=== PATIENT | female | born 1960 | race Caucasian/White ===

== ENCOUNTER → 2016-09-26 | Outpatient (CLI) | payer OTHER | LOC: FIMAGING 17:00 | PROVIDERS: ATTEND Specialist | DX: N20.0 Calculus of kidney (principal) ==

== ENCOUNTER 2016-10-22 11:03 | Day surgery (SDC) | payer OTHER ==
[2016-10-22] MEDS ORDERED: LR 1,000 ML IV ONE (11:52)
[2016-10-22] MEDS ORDERED: LIDOCAINE 1% 5 ML SDV ID PRN (11:52)
[2016-10-22] MEDS ORDERED: fentaNYL 100 MCG/2 ML INJ ONE (12:27)
[2016-10-22] MEDS ORDERED: PROPOFOL/EMULSION 500 MG/50 ML BOTTLE IV ONE (12:27)
[2016-10-22] MEDS ORDERED: LIDOCAINE 2% 100 MG/5 ML SYR ONE (12:28)
[2016-10-22] MEDS ORDERED: DEXAMETHASONE 4 MG/ML VIAL ONE (12:28)
[2016-10-22] MEDS ORDERED: MIDAZOLAM 2 MG/2 ML VIAL ONE (12:29)
[2016-10-22] MEDS ORDERED: ROCURONIUM 50 MG/5 ML VIAL ONE (12:30)
--- NOTE | 2016-10-22 14:09 | GPN ---
[f rep st] PROCEDURE NOTE DATE OF PROCEDURE: 10/22/2016 PROCEDURE: Esophagogastroscopy with biopsy, endoscopic ultrasound. INDICATION: The patient is a 56-year-old female who presents for evaluation of abnormal imaging. S he also has complaints of nausea, vomiting, as well as diffuse abdominal pain. Patient wants furthe r evaluation. CONSENT: Risks, benefits, and alternatives of the procedure were discussed in great detail with the patient. Risks of infection, bleeding, perforation, sedation, and pancreatitis were discussed. Al l questions answered. Informed consent obtained. MEDICATIONS: General anesthesia. Please see Anesthesia details. ESTIMATED BLOOD LOSS: Insignificant. ESOPHAGOGASTRODUODENOSCOPY EXAMINATION: The Olympus upper endoscope was introduced into the mouth a nd into the esophagus. Proximal and mid esophagus were normal in appearance. The patient had an ir regular Z-line with a tongue of columnar-appearing epithelium extending at least 2 cm above the teri roesophageal junction. Biopsies were taken. The stomach was entered and closely examined, including retroflexed exam of angularis, cardia, and f undus. The patient noted to have a moderate-sized hiatal hernia. The mucosa in the antrum and body was erythematous in a patchy distribution. Biopsies were taken. The duodenal bulb and second portion were normal in appearance. Biopsies were taken . Endoscopic ultrasound examination revealed linear in the mouth and second portion of the duodenum. The pancreas carefully examined from the uncinate process to the tail, where the spleen w as seen. The patient noted to have hyperechoic foci throughout the pancreas. The patient also note d to have dilated side branches as well as hyperechoic ductal weiner. In the mid pancreas, a [address] one with acoustic shadowing was noted. The liver was seen and was normal. No suspicious periportal, peripancreatic, or perigastric stones appreciated. IMPRESSION: 1. Chronic pancreatitis. 2. Gastritis, status post biopsy. 3. 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 RECOMENDATIONS: 1. Follow up on biopsy results. 2. Proceed with colonoscopy. /[id number]/MODL
--- NOTE | 2016-10-22 14:24 | GPN ---
[f rep st] PROCEDURE NOTE DATE OF PROCEDURE: 10/22/2016 PROCEDURE PERFORMED: Colonoscopy with snare polypectomy, biopsy. INDICATIONS: The patient is a 56-year-old female who presents for evaluation of blood in stool. CONSENT: Risks, benefits, and alternatives of the procedure were discussed in great detail with the patient. Risks of infection, bleeding, perforation, and sedation were discussed. All questions we re answered. Informed consent was obtained. MEDICATIONS: General anesthesia. Please see Anesthesiology record for details. ESTIMATED BLOOD LOSS: Insignificant. COLONOSCOPIC EVALUATION: A rectal exam was done and the patient was noted to have internal hemorrho ids. The scope was introduced into the rectum and advanced to the cecum where the ileocecal valve and peggy endiceal orifice were seen. The colonic mucosa was carefully examined both on insertion and withdrawal of the scope. The patien t was noted to have mild melanosis coli throughout the whole exam in colon. In the ascending and transverse colon, 2 polyps were removed measuring approximately 4-5 mm. These were removed by cold snare polypectomy. In the rectum, a 2 mm polyp was seen and removed by biopsy forceps. Retroflexion was performed and the patient was noted to have internal hemorrhoids. IMPRESSION: Suspect that the cause of bleeding is hemorrhoidal. RECOMMENDATIONS: 1. Fiber supplementation. 2. No straining with bowel movements. 3. Multiple colonic polyps- pathology in 3-5 years. /[id number]/MODL
== END 2016-10-22 16:39 | disposition home or self-care (01) ==
LOC: FSGY 11:03
PROVIDERS: ATTEND Internal Medicine Gastroenterology
PROC: 0DB68ZX Excision of Stomach, Via Natural or Artificial Opening Endoscopic, Diagnostic (ICD-10-PCS; principal; 2016-10-22 12:30)
PROC: 0DB48ZX Excision of Esophagogastric Junction, Via Natural or Artificial Opening Endoscopic, Diagnostic (ICD-10-PCS; principal; 2016-10-22 12:30)
PROC: 0DBP8ZX Excision of Rectum, Via Natural or Artificial Opening Endoscopic, Diagnostic (ICD-10-PCS; principal; 2016-10-22 12:30)
PROC: 0DBL8ZX Excision of Transverse Colon, Via Natural or Artificial Opening Endoscopic, Diagnostic (ICD-10-PCS; principal; 2016-10-22 12:30)
PROC: 0DB98ZX Excision of Duodenum, Via Natural or Artificial Opening Endoscopic, Diagnostic (ICD-10-PCS; principal; 2016-10-22 12:30)
PROC: 0DBK8ZX Excision of Ascending Colon, Via Natural or Artificial Opening Endoscopic, Diagnostic (ICD-10-PCS; principal; 2016-10-22 12:30)
DX: D12.3 Benign neoplasm of transverse colon (principal); D12.2 Benign neoplasm of ascending colon; K22.70 Barrett's esophagus without dysplasia; K62.1 Rectal polyp; K64.8 Other hemorrhoids; K44.9 Diaphragmatic hernia without obstruction or gangrene; K86.1 Other chronic pancreatitis; K29.70 Gastritis, unspecified, without bleeding
CPT/HCPCS: J1100; J2001; J2250; J2704; J3010

== ENCOUNTER → 2017-01-07 | Outpatient (CLI) | payer OTHER | LOC: FIMAGING 10:54 | PROVIDERS: ATTEND Physician Assistant Medical | DX: R10.32 Left lower quadrant pain (principal); R82.99 Other abnormal findings in urine; E72.53 Primary hyperoxaluria ==

== ENCOUNTER → 2017-04-19 | Outpatient (CLI) | payer OTHER ==
[~2017-04-19] MED LIST: IOPAMIDOL (ISOVUE-300) 100 ML BTL ONE
== END ==
LOC: FIMAGING 11:14
PROVIDERS: ATTEND Internal Medicine
DX: K86.0 Alcohol-induced chronic pancreatitis (principal); Z90.49 Acquired absence of other specified parts of digestive tract; N20.0 Calculus of kidney
CPT/HCPCS: Q9967

== ENCOUNTER 2018-06-06 14:19 | Emergency (ER) | payer OTHER ==
[2018-06-06] MEDS ORDERED: ONDANSETRON 4 MG/2 ML VIAL IVP ONE (15:16)
[2018-06-06] MEDS ORDERED: NS 1,000 ML IV ONE ×2 (15:16)
--- NOTE | 2018-06-06 15:17 | EDPHY ---
H & P Time Seen by Provider: 06/06/18 14:50 HPI/ROS: CHIEF COMPLAINT: Abdominal pain vomiting and dehydration HISTORY OF PRESENT ILLNESS: Patient is a history of chronic pancreatitis, used to drink alcohol but does not currently. She presents with which she describes as "flu" symptoms for week which she describes as nausea vomiting and shaky with myalgias. Her last episode of vomiting was yesterday. She has some diarrhea yesterday and today and presents today feeling dizzy lightheaded and dehydrated. Symptoms moderate to severe, worse with oral intake. Not associated with urinary symptoms or fever back pain. No melena or hematemesis. REVIEW OF SYSTEMS: Eye: no change in vision ENT: no sore throat Cardiac: no chest pain or syncope Pulmonary: no cough or SOB Abdomen: HPI Musculoskeletal: no back pain Skin: no rash Neuro: no headache Constitutional: no fever : no urinary symptoms A comprehensive 10 point review of systems is otherwise negative aside from elements mentioned in the history of present illness. PAST MEDICAL HISTORY: Includes hysterectomy, , appendectomy, cholecystectomy. Chronic pancreatitis Social history: Former drinker, sober now General Appearance: Alert and conversant, cooperative. Eyes: No scleral icterus. ENT, Mouth: Dry mucous membranes. Respiratory: Normal respiratory effort, breath sounds equal, lungs are clear to auscultation. Cardiovascular: Regular rate and rhythm. Gastrointestinal: Abdomen is soft and non tender. Neurological: Alert, face symmetric, normal motor and sensory in extremities. Skin: Warm and dry, no rashes. Musculoskeletal: No peripheral edema. Psychiatric: Not agitated. Emergency Department course/MDM: IV fluids, Zofran, labs to include lipase and LFTs. Patient takes buprenorphine. 1632: Results discussed with the patient including normal LFTs and lipase. Slightly anemic but that is baseline. She is saying she has a headache and some abdominal cramping and was requesting treatment with fentanyl which I think is reasonable. Single dose 100 mcg IV. I am not suspicious that her headache is an emergent medical or surgical condition, more likely due to dehydration. Normal abdominal exam, I think acute surgical abdominal process is unlikely. She would like to go home after IV hydration which I think is reasonable. 1753: feels better, wants to be discharged which I think is reasonable. Smoking Status: Never smoked Constitutional: Initial Vital Signs Temperature (C) 37.2 C 06/06/18 14:20 Heart Rate 102 H 06/06/18 14:20 Respiratory Rate 18 06/06/18 14:20 Blood Pressure 136/89 H 06/06/18 14:20 O2 Sat (%) 98 06/06/18 14:20 O2 Delivery Mode Room Air Allergies/Adverse Reactions: amoxicillin [Amoxicillin] Allergy (Mild, Verified 06/06/18 14:25) Rash Penicillins Allergy (Mild, Verified 06/06/18 14:25) Rash Home Medications: Medication Instructions Recorded Amitriptyline HCl [Elavil 50 mg 50 mg PO HS 06/06/18 (*)] Buprenorphine HCl/Naloxone HCl 1 each SL 06/06/18 [Buprenorphin-Naloxon 8-2 mg Sl] DULoxetine [Cymbalta 60 MG (*)] 60 mg PO DAILY 06/06/18 Eszopiclone 1 mg PO 06/06/18 Ondansetron [Ondansetron Odt] 4 mg PO 06/06/18 hydrOXYzine HCL [hydrOXYzine HCL 25 mg PO 06/06/18 (RX)] Medical Decision Making Differential Diagnosis: Differential considered including but not limited to pancreatitis, bowel obstruction, urinary tract infection, gastroenteritis. - Data Points Laboratory Results: Laboratory Results 06/06/18 15:13 06/06/18 15:13 06/06/18 06/06/18 06/06/18 15:13 15:13 14:41 WBC 5.06 10^3/uL 10^3/uL (3.80-9.50) RBC 4.29 10^6/uL 10^6/uL (4.18-5.33) Hgb 12.4 g/dL L g/dL (12.6-16.3) Hct 37.3 % L % (38.0-47.0) MCV 86.9 fL fL (81.5-99.8) MCH 28.9 pg pg (27.9-34.1) MCHC 33.2 g/dL g/dL (32.4-36.7) RDW 11.9 % % (11.5-15.2) Plt Count 329 10^3/uL 10^3/uL (150-400) MPV 9.2 fL fL (8.7-11.7) Neut % (Auto) 51.4 % % (39.3-74.2) Lymph % (Auto) 40.3 % % (15.0-45.0) [place] % (Auto) 7.3 % % (4.5-13.0) Eos % (Auto) 0.4 % L % (0.6-7.6) Baso % (Auto) 0.4 % % (0.3-1.7) Nucleat RBC Rel Count 0.0 % % (0.0-0.2) Absolute Neuts (auto) 2.60 10^3/uL 10^3/uL (1.70-6.50) Absolute Lymphs (auto) 2.04 10^3/uL 10^3/uL (1.00-3.00) Absolute Monos (auto) 0.37 10^3/uL 10^3/uL (0.30-0.80) Absolute Eos (auto) 0.02 10^3/uL L 10^3/uL (0.03-0.40) Absolute Basos (auto) 0.02 10^3/uL 10^3/uL (0.02-0.10) Absolute Nucleated RBC 0.00 10^3/uL 10^3/uL (0-0.01) Immature Gran % 0.2 % % (0.0-1.1) Immature Gran # 0.01 10^3/uL 10^3/uL (0.00-0.10) Sodium 138 mEq/L mEq/L (135-145) Potassium 3.9 mEq/L mEq/L (3.5-5.2) Chloride 103 mEq/L mEq/L (97-110) Carbon Dioxide 25 mEq/l mEq/l (22-31) Anion Gap 10 mEq/L mEq/L (6-14) BUN 17 mg/dL mg/dL (7-23) Creatinine 1.0 mg/dL mg/dL (0.6-1.0) Estimated GFR 57 Glucose 100 mg/dL mg/dL (70-100) Calcium 9.6 mg/dL mg/dL (8.5-10.4) Total Bilirubin 0.7 mg/dL mg/dL (0.1-1.4) Conjugated Bilirubin 0.3 mg/dL mg/dL (0.0-0.5) Unconjugated Bilirubin 0.4 mg/dL mg/dL (0.0-1.1) AST 31 IU/L IU/L (14-46) ALT 42 IU/L IU/L (9-52) Alkaline Phosphatase 88 IU/L IU/L (38-126) Total Protein 7.2 g/dL g/dL (6.3-8.2) Albumin 4.6 g/dL g/dL (3.5-5.0) Lipase < 10 IU/L L IU/L (23-300) Urine Color AAN MARÍA Urine Appearance HAZY Urine pH 6.0 (5.0-7.5) Ur Specific [place] 1.021 (1.002-1.030) Urine Protein NEGATIVE (NEGATIVE) Urine Ketones NEGATIVE (NEGATIVE) Urine Blood NEGATIVE (NEGATIVE) Urine Nitrate NEGATIVE (NEGATIVE) Urine Bilirubin NEGATIVE (NEGATIVE) Urine Urobilinogen 2.0 EU H EU (0.2-1.0) Ur Leukocyte Esterase NEGATIVE (NEGATIVE) Urine RBC 1-3 /hpf /hpf (0-3) Urine WBC 1-3 /hpf /hpf (0-3) Ur Epithelial Cells TRACE /lpf /lpf (NONE-1+) Urine Bacteria TRACE /hpf H /hpf (NONE SEEN) Urine Mucus 3+ /lpf H /lpf (NONE-1+) Urine Glucose 1+ H (NEGATIVE) Medications Given: Discontinued Medications Fentanyl (Sublimaze) 100 mcg IVP EDNOW ONE Stop: 06/06/18 16:32 Last Admin: 06/06/18 16:37 Dose: 100 mcg Sodium Chloride (Ns) 1,000 mls @ 0 mls/hr IV EDNOW ONE; Wide Open PRN Reason: Protocol Stop: 06/06/18 15:17 Last Admin: 06/06/18 15:24 Dose: 1,000 mls Sodium Chloride (Ns) 1,000 mls @ 0 mls/hr IV EDNOW ONE; Wide Open PRN Reason: Protocol Stop: 06/06/18 15:17 Last Admin: 06/06/18 15:27 Dose: 1,000 mls Ondansetron HCl (Zofran) 4 mg IVP EDNOW ONE Stop: 06/06/18 15:17 Last Admin: 06/06/18 15:28 Dose: 4 mg Departure - Departure Disposition: Home, Routine, Self-Care Clinical Impression: Dehydration Condition: Good Instructions: Dehydration (ED) Referrals: Lang Lambert PA [Primary Care Provider] - As per Instructions
[2018-06-06 15:30] LABS: PLATELET COUNT 329 10^3/uL (150-400)
[2018-06-06] MEDS ORDERED: fentaNYL 100 MCG/2 ML INJ IVP ONE (16:31)
[2018-06-06 18:15] VITALS: BP 135/79
== END 2018-06-06 18:15 | disposition home or self-care (01) ==
DX: E86.0 Dehydration (principal)
CPT/HCPCS: 96374; J2405; J3010

== ENCOUNTER → 2018-08-15 | Outpatient (CLI) | payer OTHER | LOC: EMCIMAGING 08:24 | PROVIDERS: ATTEND Psychiatry & Neurology Neurology | DX: R40.4 Transient alteration of awareness (principal) | CPT/HCPCS: 70553-PN ==

== ENCOUNTER → 2018-09-12 | Outpatient (CLI) | payer BC ==
--- NOTE | 2018-09-12 12:49 | CPEEG ---
[f rep st] ELECTROENCEPHALOGRAM DATE OF STUDY: 09/12/2018 DATE OF INTERPRETATION: 09/12/2018 INTERPRETATION: Essentially normal EEG during wakefulness and sleep. There were no definite potentially epileptogenic abnormalities present in the recording. REPORT: This EEG contains 10 Hz alpha activity over the posterior head regions. There was no abnormal activation at rest or with photic stimulation. After hyperventilation, the patient developed some theta and delta frequency slowing. The slowing continued in a rhythmic fashion over the bi-posterior temporal head regions in the theta frequency and had a stuttering course with resolution over a few minutes. There was no clinical correlation with this electrographic pattern. This electrographic pattern may have represented a normal hyperventilation buildup response versus a benign variant, known as subclinical rhythmic electrographic discharge of adults (SREDA). There were no definite epileptogenic abnormalities or electrographic seizures recorded during this study. The patient became drowsy and fell asleep. There was no abnormal activation during drowsiness, sleep, or during times of arousal. /[id number]/MODL MTDD
== END ==
LOC: FCPNEURO 10:45
PROVIDERS: ATTEND Psychiatry & Neurology Neurology
DX: R55 Syncope and collapse (principal); R40.4 Transient alteration of awareness